=== PATIENT | female | born 1945 | race American Indian/Alaskan Native ===

== ENCOUNTER 2021-10-20 08:51 | Outpatient (CLI) | payer MEDICARE | END 2021-10-20 08:52 | disposition home or self-care (01) | LOC: MAMMO 08:51 | PROVIDERS: ATTEND Internal Medicine | DX: Z12.31 Encounter for screening mammogram for malignant neoplasm of breast (principal) | CPT/HCPCS: 77067 ==

== ENCOUNTER 2022-01-24 09:44 | Outpatient (CLI) | payer MEDICARE | END 2022-01-24 09:45 | disposition home or self-care (01) | LOC: LABHHL 09:44 | PROVIDERS: ATTEND Internal Medicine | DX: E11.9 Type 2 diabetes mellitus without complications (principal); E03.9 Hypothyroidism, unspecified | CPT/HCPCS: 36415; 83036; 84443 ==